=== PATIENT | male | born 1980 | race African-American/Black ===

== ENCOUNTER 2020-09-23 13:53 | Outpatient (REF) | payer OTHER, SELFPAY ==
--- NOTE | 2020-09-23 | PFT_ITS ---
FLOWS: FEV1 of 82% of predicted at 3.98 L. FVC 80% of predicted at 4.73 L. FEV1 to FVC ratio of 0.84. No bronchodilator response. LUNG VOLUMES: Total lung capacity 88% of predicted at 6.83 L. Residual volume 109% of predicted at 2.21 L. Slow vital capacity 80% of predicted at 4.61 L. Expiratory reserve volume 11% of predicted at 0.22 L. Diffusion capacity is normal. IMPRESSION: No obstructive or restrictive ventilatory defect. No bronchodilator response. Decreased expiratory reserve volume suggests extrathoracic restriction likely secondary to abdominal obesity. MD FEDERICO De Los Santos/MODL / [id number]
== END 2020-09-23 13:54 | disposition home or self-care (01) ==
LOC: HO.RESP 13:53
PROVIDERS: PCP Internal Medicine; Visit Provider Internal Medicine
DX: R06.02 Shortness of breath (principal)
CPT/HCPCS: 94060; 94727; 94729

== ENCOUNTER 2020-10-14 14:27 | Outpatient (REF) | payer OTHER, SELFPAY ==
--- NOTE | 2020-10-14 | PFT_ITS ---
SPIROMETRY: FEV1 of 79% of predicted at 3.85 L. FVC 77% of predicted at 4.56 L. FEV1 to FVC ratio of 0.84. No bronchodilator response. METHACHOLINE CHALLENGE TEST: The patient did not have significant change in underlying FEV1 with range of methacholine concentrations being administered. IMPRESSION: At baseline, no obstructive ventilatory defect noted. No bronchodilator response. Negative methacholine challenge test. MD FEDERIOC De Los Santos/SHIKHA / [id number]
== END 2020-10-14 14:28 | disposition home or self-care (01) ==
LOC: HO.RESP 14:27
PROVIDERS: Visit Provider Internal Medicine
DX: R06.02 Shortness of breath (principal)
CPT/HCPCS: 94070; J7674

== ENCOUNTER 2021-07-21 10:16 | Outpatient (REF) | payer OTHER, SELFPAY ==
--- NOTE | ~2021-07-21 | US_ITS ---
EXAMINATION: US ABDOMEN COMPLETE CLINICAL INFORMATION: Abnormal liver function tests. COMPARISON: None TECHNIQUE: Real-time imaging of the abdominal viscera. FINDINGS: PANCREAS: The majority of the pancreas is obscured by overlying bowel gas and suboptimally visualized. ABDOMINAL AORTA: The proximal, mid, and distal segments are normal in caliber. INFERIOR VENA CAVA: Visualized portions are normal. LIVER: The liver parenchyma is increased in echogenicity and aside from focal fatty sparing adjacent to the gallbladder fossa, no other focal abnormalities are identified. There is no biliary ductal dilatation. GALLBLADDER: Normal. The gallbladder is physiologically distended without evidence of stones, sludge, polyps, wall thickening or pericholecystic fluid. COMMON BILE DUCT: Normal in caliber measuring 0.4 cm in diameter. RIGHT KIDNEY: Normal. No hydronephrosis. No renal calculi or focal parenchymal lesions. The kidney measures 12.4 cm in maximum dimension. LEFT KIDNEY: Normal. No hydronephrosis. No renal calculi or focal parenchymal lesions. The kidney measures 12.7 cm in maximum dimension. SPLEEN: Normal. The spleen measures 12.0 cm in maximum dimension. FREE FLUID: None. US/US abdomen complete IMPRESSION: Findings consistent with hepatic steatosis and/or hepatocellular disease.
== END 2021-07-21 10:17 | disposition home or self-care (01) ==
LOC: HO.US 10:16
PROVIDERS: PCP Internal Medicine; Visit Provider Internal Medicine
DX: R94.5 Abnormal results of liver function studies (principal)
CPT/HCPCS: 76700

== ENCOUNTER 2023-11-11 12:06 | Outpatient (REF) | payer OTHER, SELFPAY ==
[2023-11-11 15:26] LABS: Influenza A PCR NEGATIVE (Negative); Influenza B PCR NEGATIVE (Negative); Resp Syncy Virus RNA Qual PCR NEGATIVE (Negative); SARS COV2 PCR INHOUSE NEGATIVE (Negative)
== END 2023-11-11 12:07 | disposition home or self-care (01) ==
LOC: HO.CHCLNP 12:06
PROVIDERS: Visit Provider Internal Medicine
DX: J06.9 Acute upper respiratory infection, unspecified (principal); Z11.52 Encounter for screening for COVID-19
CPT/HCPCS: 0241U

== ENCOUNTER 2024-06-25 08:22 | Outpatient (REF) | payer OTHER, SELFPAY ==
[2024-06-25 14:37] LABS: MANUAL DIFF FLAG NO
[2024-06-25 14:44] LABS: Basophils Percent Auto 0.7 % (0-2); Eosinophils Absolute Auto 0.1 X10*3/uL (0.0-0.4); Hematocrit 43.3 % (42.0-52.0); Hemoglobin 14.5 g/dl (14.0-18.0); Imm Gran Abs Auto 0.02 X10*3/uL (0.00-0.03); Imm Gran Pct Auto 0.3 % (0.0-0.4); Lymphocytes Absolute Auto 2.3 X10*3/uL (1.2-4.9); Lymphocytes Percent Auto 39.3 % (20-40); Mean Corpuscular HGB Conc 33.5 g/dl (31.0-36.0); Mean Corpuscular Hemoglobin 28.9 pg (27.0-33.0); Mean Corpuscular Volume 86.4 fL (80.0-98.0); Monocytes Absolute Auto 0.6 X10*3/uL (0.1-1.2); Monocytes Percent Auto 9.4 % (2-11); Neutrophils Absolute Auto 2.9 x10*3/uL (2.0-8.3); Neutrophils Percent Auto 49.3 % (45-73); Platelet Count 138 X10*3/uL (160-400); Red Blood Count 5.01 X10*6/uL (4.60-5.80); Red Cell Distribution Width 13.3 % (11.0-16.0); White Blood Count 5.9 X10*3/uL (4.8-10.8)
[2024-06-25 15:16] LABS: Alanine Aminotransferase 46 U/L (0-40); Albumin Level 4.3 g/dL (3.5-5.0); Alkaline Phosphatase 68 U/L (39-117); Anion Gap 13 (12-20); Aspartate Amino Transferase 34 U/L (5-37); Bilirubin Total 0.5 mg/dL (0.0-1.0); Blood Urea Nitrogen 16 mg/dL (9-16); Calcium 9.6 mg/dL (8.4-10.2); Carbon Dioxide 26 mmol/L (22-29); Chloride 105 mmol/L (96-108); Cholesterol 196 mg/dL (<200); Estimated Glomerular Filt Rate > 60; Glucose Random 87 mg/dL (60-115); HDL Cholesterol 46 mg/dL (>40); LDL Cholesterol Calculated 132 mg/dL (<100); Sodium 140 mmol/L (135-145); TSH reflex Free T4 0.62 uIU/mL (0.32-4.0); Total Protein 7.5 g/dL (6.5-8.0); Triglycerides 94 mg/dL (<150)
[2024-06-26 04:56] LABS: ~Hepatitis C Antibody Nonreactive (Nonreactive)
== END 2024-06-25 08:23 | disposition home or self-care (01) ==
LOC: HO.CHCLDS 08:22
PROVIDERS: Visit Provider Internal Medicine
DX: Z00.00 Encounter for general adult medical examination without abnormal findings (principal); R03.0 Elevated blood-pressure reading, without diagnosis of hypertension
CPT/HCPCS: 36415; 80053; 80061; 84443; 85025; 86803

== ENCOUNTER 2024-07-06 08:10 | Outpatient (REF) | payer OTHER, SELFPAY ==
[2024-07-07 07:56] LABS: ~Hepatitis C Antibody Nonreactive (Nonreactive)
== END 2024-07-06 08:11 | disposition home or self-care (01) ==
LOC: HO.CHCLDS 08:10
PROVIDERS: Visit Provider Internal Medicine
DX: R79.89 Other specified abnormal findings of blood chemistry (principal)
CPT/HCPCS: 36415; 86803